=== PATIENT | male | born 1985 | race Native Hawaiian/Other Pacific Islander ===

== ENCOUNTER 2021-01-05 04:24 | Emergency (ER) | payer OTHER ==
[~2021-01-05] VITALS: Ht 177.8 cm; Wt 79.5 kg
[2021-01-05 04:37] VITALS: TEMP 97.1
[2021-01-05 05:37] LABS: BASO % 0.3 % (0.0-2.0); EOS % 1.3 % (0-4.0); GRAN # 1.3 (1.4-6.5); GRAN % 42.7 % (42.2-75.2); HEMATOCRIT 48.9 % (42.0-52.0); HEMOGLOBIN 16.5 g/dl (13.5-18.0); LYMPH # 1.4 (1.2-3.4); LYMPH % 45.3 % (20.0-51.0); MEAN CELL VOLUME 87 fl (80.0-100.0); MEAN CORPUSCULAR HEMOGLOBIN 29 pg (27.0-31.0); MEAN CORPUSCULAR HGB CONC 34 g/dl (33.0-37.0); MEAN PLATELET VOLUME 10.1 fl (7.4-10.4); MONO # 0.3 (0.1-0.6); MONO % 10.4 % (1.7-9.3); PLATELET COUNT 152 K/mm3 (130-400); RED BLOOD COUNT 5.65 M/mm3 (4.20-5.60); REDCELL DISTRIBUTION WIDTH-CV 11.9 % (11.5-14.5)
[2021-01-05 06:14] LABS: ALANINE AMINOTRANSFERASE 27 U/L (4-49); ALBUMIN 3.9 gm/dL (3.5-5.0); ALKALINE PHOSPHATASE 70 U/L (50-136); ANION GAP 2 mmol/L (7-16); AST,SGOT 39 U/L (15-37); BILIRUBIN,TOTAL 0.3 mg/dL (0.0-1.0); BLOOD UREA NITROGEN 10 mg/dL (9-20); CALCIUM 8.8 mg/dL (8.4-10.2); CARBON DIOXIDE 29 mmol/L (22-30); CHLORIDE 106 mmol/L (98-107); CREATININE, serum 0.87 (0.66-1.25); GLUCOSE 103 mg/dL (74-106); POTASSIUM 4.1 mmol/L (3.4-5.0); SODIUM 137 mmol/L (137-145); TOTAL PROTEIN 7.3 gm/dL (6.4-8.2)
[2021-01-05 06:31] LABS: TROPONIN-I < 0.012 ng/mL (0.000-0.035)
[2021-01-05] MEDS ORDERED: AMOXICILLIN 8751 TAB PO (06:40)
[2021-01-05] MEDS ORDERED: NORCO 325 MG-51 TAB PO ×3 (06:40→08:26)
[2021-01-05 08:10] VITALS: BP 100/64; PULSE 49
== END 2021-01-05 08:10 | disposition home or self-care (01) ==
LOC: COL.ER 04:24
PROVIDERS: Personal Emergency Response Attendant
DX: U07.1 COVID-19 (principal); J12.82 Pneumonia due to coronavirus disease 2019
CPT/HCPCS: J0456; J0696; J1100; J2270; J2405; J7030; J7050